=== PATIENT | male | born 1985 | race African-American/Black ===

== ENCOUNTER 2020-12-27 08:21 | Emergency (ER) | payer OTHER ==
--- NOTE | 2020-12-27 09:51 | ER ---
Nurse's Notes [facility] Name: Logan Leo Age: 35 yrs Sex: Male : 1985 Arrival Date: 12/27/2020 Time: 08:27 Bed 16 Private MD: Diagnosis: Pain in left shoulder;Gastrointestinal hemorrhage, unspecified-HEMORRHOIDS Presentation: 12/27 09:06 Chief complaint: Patient states: Left shoulder pain x 1 week and intermittent trace jl7 blood in stool and on toilet paper x 2 week. Coronavirus screen: Client denies travel out of the [place] in the last 14 days. At this time, the client does not indicate any symptoms associated with coronavirus-19. Ebola Screen: No symptoms or risks identified at this time. Initial Sepsis Screen: Does the patient meet any 2 criteria? No. Patient's initial sepsis screen is negative. Does the patient have a suspected source of infection? No. Patient's initial sepsis screen is negative. Risk Assessment: Do you want to hurt yourself or someone else? Patient reports no desire to harm self or others. Onset of symptoms was December 20, 2020. Care prior to arrival: None. 09:06 Method Of Arrival: Ambulatory jl7 09:06 Acuity: MATT 3 jl7 Triage Assessment: 09:08 General: Appears in no apparent distress. uncomfortable, Behavior is calm, cooperative, jl7 appropriate for age. Pain: Complains of pain in posterior aspect of left shoulder Pain currently is 7 out of 10 on a pain scale. Neuro: Level of Consciousness is awake, alert, obeys commands, Oriented to person, place, time, situation. Cardiovascular: Patient's skin is warm and dry. Respiratory: Airway is patent Respiratory effort is even, unlabored, Respiratory pattern is regular, symmetrical. GI: Abdomen is non-distended, Reports bloody stool. Derm: Skin is dry, Skin is normal, Skin temperature is warm. Historical: - Allergies: 09:08 No Known Allergies; jl7 - Home Meds: 09:08 None [Active]; jl7 - PMHx: 09:08 None; jl7 - PSHx: 09:08 None; jl7 - Immunization history:: Adult Immunizations unknown. - Social history:: Smoking status: Patient denies any tobacco usage or history of. Screenin:45 Abuse screen: Denies threats or abuse. Denies injuries from another. Nutritional jl7 screening: No deficits noted. Tuberculosis screening: No symptoms or risk factors identified. Fall Risk None identified. Assessment: 09:10 General: See triage assessment. jl7 Vital Signs: 09:06 BP 142 / 98; Pulse 87; Resp 17; Temp 98.5; Pulse Ox 100% ; Weight 77.11 kg; Height 5 jl7 ft. 7 in. (170.18 cm); Pain /10; 09:45 BP 145 / 99; Pulse 78; Resp 15; Pulse Ox 100% ; jl7 09:06 Body Mass Index 26.63 (77.11 kg, 170.18 cm) jl7 ED Course: 08:27 Patient arrived in ED. mr 08:49 Frederick oMrse MD is Attending Physician. [facility] 09:05 Gi Tello, RN is Primary Nurse. jl7 09:08 Triage completed. jl7 09:08 Arm band placed on right wrist. jl7 09:45 Patient has correct armband on for positive identification. Bed in low position. Call jl7 light in reach. Side rails up X 1. 09:50 Beth Cantor MD is Referral Physician. [facility] 10:20 No provider procedures requiring assistance completed. Patient did not have IV access jl7 during this emergency room visit. Administered Medications: No medications were administered Outcome: 09:51 Discharge ordered by . garrick 10:20 Discharged to home ambulatory. jl7 10:20 Condition: stable 10:20 Discharge instructions given to patient, Instructed on discharge instructions, follow up and referral plans. medication usage, Demonstrated understanding of instructions, follow-up care, medications, Prescriptions given X 2. 10:21 Patient left the ED. jl7 Signatures: Frederick Morse MD MD cha Rivera, Mary mr Gi Tello, RN RN jl7
--- NOTE | 2020-12-27 09:51 | EDPHYS ---
Physician Documentation [facility] Name: Logan Leo Age: 35 yrs Sex: Male : 1985 Arrival Date: 12/27/2020 Time: 08:27 Bed 16 Private MD: ED Physician Frederick Morse HPI: 12/27 09:45 This 35 yrs old Black Male presents to ER via Ambulatory with complaints of Shoulder garrick Pain, Bloody Stools. 09:45 The patient or guardian complains of pain, that is acute. left trapezius. Context: The garrick problem was sustained at an unknown site, resulted from an unknown reason, The patient reports no decreased range of motion. The patient reports no obvious deformity. Onset: The symptoms/episode began/occurred 1 day(s) ago. Modifying factors: the symptoms are alleviated by remaining still, The symptoms are aggravated by movement. Associated signs and symptoms: The patient has no apparent associated signs or symptoms. Severity of symptoms: At their worst the symptoms were mild, in the emergency department the symptoms are unchanged. The patient has not experienced similar symptoms in the past. Historical: - Allergies: 09:08 No Known Allergies; jl7 - Home Meds: 09:08 None [Active]; jl7 - PMHx: 09:08 None; jl7 - PSHx: 09:08 None; jl7 - Immunization history:: Adult Immunizations unknown. - Social history:: Smoking status: Patient denies any tobacco usage or history of. ROS: 09:46 Constitutional: Negative for fever, chills, and weight loss, Eyes: Negative for injury, garrick pain, redness, and discharge, ENT: Negative for injury, pain, and discharge, Neck: Negative for injury, pain, and swelling, Cardiovascular: Negative for chest pain, palpitations, and edema, Respiratory: Negative for shortness of breath, cough, wheezing, and pleuritic chest pain, Back: Negative for injury and pain, : Negative for injury, bleeding, discharge, and swelling, Skin: Negative for injury, rash, and discoloration, Neuro: Negative for headache, weakness, numbness, tingling, and seizure, Psych: Negative for depression, anxiety, suicide ideation, homicidal ideation, and hallucinations, Allergy/Immunology: Negative for hives, rash, and allergies, Endocrine: Negative for neck swelling, polydipsia, polyuria, polyphagia, and marked weight changes, Hematologic/Lymphatic: Negative for swollen nodes, abnormal bleeding, and unusual bruising. 09:46 Abdomen/GI: Positive for rectal bleeding. 09:46 MS/extremity: Positive for pain, of the anterior aspect of left shoulder and posterior aspect of left shoulder. Exam: 09:46 Constitutional: This is a well developed, well nourished patient who is awake, alert, garrick and in no acute distress. Head/Face: Normocephalic, atraumatic. Eyes: Pupils equal round and reactive to light, extra-ocular motions intact. Lids and lashes normal. Conjunctiva and sclera are non-icteric and not injected. Cornea within normal limits. Periorbital areas with no swelling, redness, or edema. ENT: Nares patent. No nasal discharge, no septal abnormalities noted. Tympanic membranes are normal and external auditory canals are clear. Oropharynx with no redness, swelling, or masses, exudates, or evidence of obstruction, uvula midline. Mucous membranes moist. Neck: Trachea midline, no thyromegaly or masses palpated, and no cervical lymphadenopathy. Supple, full range of motion without nuchal rigidity, or vertebral point tenderness. No Meningismus. Chest/axilla: Normal chest wall appearance and motion. Nontender with no deformity. No lesions are appreciated. Cardiovascular: Regular rate and rhythm with a normal S1 and S2. No gallops, murmurs, or rubs. Normal PMI, no JVD. No pulse deficits. Respiratory: Lungs have equal breath sounds bilaterally, clear to auscultation and percussion. No rales, rhonchi or wheezes noted. No increased work of breathing, no retractions or nasal flaring. Abdomen/GI: Soft, non-tender, with normal bowel sounds. No distension or tympany. No guarding or rebound. No evidence of tenderness throughout. Back: No spinal tenderness. No costovertebral tenderness. Full range of motion. Skin: Warm, dry with normal turgor. Normal color with no rashes, no lesions, and no evidence of cellulitis. Neuro: Awake and alert, GCS 15, oriented to person, place, time, and situation. Cranial nerves II-XII grossly intact. Motor strength 5/5 in all extremities. Sensory grossly intact. Cerebellar exam normal. Normal gait. Psych: Awake, alert, with orientation to person, place and time. Behavior, mood, and affect are within normal limits. 09:46 Musculoskeletal/extremity: Extremities: all appear grossly normal, with no appreciated pain with palpation, ROM: intact in all extremities, full active range of motion, full passive range of motion, Circulation is intact in all extremities. Sensation intact. Compartment Syndrome exam of affected extremity: is normal. Joints: All joints appear normal with full range of motion. Weight bearing: able to fully bear weight, DVT Exam: No signs of deep vein thrombosis. no pain, no swelling, no tenderness, negative Homans' sign noted on exam, no appreciated bluish discoloration, no erythema, no increased warmth. Vital Signs: 09:06 BP 142 / 98; Pulse 87; Resp 17; Temp 98.5; Pulse Ox 100% ; Weight 77.11 kg; Height 5 jl7 ft. 7 in. (170.18 cm); Pain 7/10; 09:45 BP 145 / 99; Pulse 78; Resp 15; Pulse Ox 100% ; jl7 09:06 Body Mass Index 26.63 (77.11 kg, 170.18 cm) 7 MDM: 08:49 Patient medically screened. garrick 09:48 Differential diagnosis: tendonitis, hemorrhoids. Data reviewed: vital signs, nurses garrick notes. Data interpreted: school lunch monitor: not applicable for this patient encounter. rate is 87 beats/min, rhythm is regular, Pulse oximetry: on is 100 %. Counseling: I had a detailed discussion with the patient and/or guardian regarding: the historical points, exam findings, and any diagnostic results supporting the discharge/admit diagnosis, radiology results, the need for outpatient follow up, for definitive care, a family practitioner, a wagon driver salesperson, a orthopedic surgeon. Administered Medications: No medications were administered Disposition: 12/27/20 09:51 Discharged to Home. Impression: Pain in left shoulder, Gastrointestinal hemorrhage, unspecified - HEMORRHOIDS. - Condition is Stable. - Discharge Instructions: Musculoskeletal Pain, Rectal Bleeding, Cryotherapy, [id number], Shoulder Pain, Igfs-[id number], Cryotherapy, Rectal Bleeding, [id number]. - Prescriptions for Ibuprofen 600 mg Oral Tablet - take 1 tablet by ORAL route every 8 hours As needed take with food; 21 tablet. Cyclobenzaprine 5 mg Oral Tablet - take 1 tablet by ORAL route 3 times per day As needed; 15 tablet. - Medication Reconciliation Form, Thank You Letter, Antibiotic Education, Prescription Opioid Use, Work release form form. - Follow up: Private Physician; When: 2 - 3 days; Reason: Recheck today's complaints, Continuance of care, Re-evaluation by your physician. Follow up: Beth Cantor MD; When: 2 - 3 days; Reason: Recheck today's complaints, Re-evaluation by your physician. - Problem is new. - Symptoms have improved. Signatures: Frederick Morse MD MD cha Leal, Jahala RN RN jl7 Corrections: (The following items were deleted from the chart) 10:21 09:51 12/27/2020 09:51 Discharged to Home. Impression: Pain in left shoulder; jl7 Gastrointestinal hemorrhage, unspecified - HEMORRHOIDS. Condition is Stable. Forms are Medication Reconciliation Form, Thank You Letter, Antibiotic Education, Prescription Opioid Use. Follow up: Private Physician; When: 2 - 3 days; Reason: Recheck today's complaints, Continuance of care, Re-evaluation by your physician. Follow up: Beth Cantor; When: 2 - 3 days; Reason: Recheck today's complaints, Re-evaluation by your physician. Problem is new. Symptoms have improved. garrick
[2020-12-27 10:26] VITALS: TEMP 98.5; O2SAT 100
[2020-12-27 10:27] VITALS: BP 145/99
== END 2020-12-27 10:21 | disposition home or self-care (01) ==
LOC: ER 08:21
DX: M25.512 Pain in left shoulder (principal); K64.9 Unspecified hemorrhoids
CPT/HCPCS: 99282

== ENCOUNTER 2023-04-15 13:23 | Emergency (ER) | payer OTHER, SELFPAY ==
[2023-04-15 14:05] LABS: Absolute Lymphocytes (CBC) 1.8 K/uL (0.7-4.9); Hematocrit 41.6 % (39.6-49.0); Lymphocytes % 21.3 % (15.3-44.8); MCV 93.2 fL (80-100); MPV 6.7 fL (7.6-11.3); Platelets 262 thou/uL (152-406); RBC Red Blood Cell Count 4.46 M/uL (4.33-5.43)
[2023-04-15] MEDS ORDERED: FAMOTIDINE 20 MG/2 ML VIAL IV ONE (14:07)
[2023-04-15] MEDS ORDERED: NA CHLORIDE 0.9% 1,000 ML ONE (14:07)
[2023-04-15 14:22] LABS: Bilirubin Total 0.6 mg/dL (0.2-1.0); Potassium 3.6 mEq/L (3.5-5.1); Protein, Total 7.6 g/dL (6.4-8.2)
--- NOTE | 2023-04-15 14:32 | ER ---
Nurse's Notes [facility] Name: Logan Leo Age: 38 yrs Sex: Male : 1985 Arrival Date: 04/15/2023 Time: 13:23 Bed 14 Private MD: Diagnosis: Rectal bleeding;Elevated blood-pressure reading, without diagnosis of hypertension Presentation: 04/15 13:45 Chief complaint: Patient states: rectal bleeding x2days. denies n/v diarrhea. kc6 Coronavirus screen: At this time, the client does not indicate any symptoms associated with coronavirus-19. Ebola Screen: No symptoms or risks identified at this time. Initial Sepsis Screen: Does the patient meet any 2 criteria? No. Patient's initial sepsis screen is negative. Does the patient have a suspected source of infection? No. Patient's initial sepsis screen is negative. Risk Assessment: Do you want to hurt yourself or someone else? Patient reports no desire to harm self or others. Onset of symptoms was April 15, 2023. 13:45 Method Of Arrival: Ambulatory [facility] 13:45 Acuity: MATT 3 kc6 Triage Assessment: 13:46 General: Appears in no apparent distress. comfortable, Behavior is calm, cooperative, kc6 appropriate for age. Pain: Complains of pain in rectum Pain currently is 4 out of 10 on a pain scale. EENT: No signs and/or symptoms were reported regarding the EENT system. Neuro: Level of Consciousness is awake, alert, obeys commands, Oriented to person, place, time, situation, Appropriate for age. Cardiovascular: Capillary refill < 3 seconds. Respiratory: Airway is patent Trachea midline Respiratory effort is even, unlabored, Respiratory pattern is regular, symmetrical. GI: Abdomen is flat, non-distended, Bowel sounds present X 4 quads. Reports bloody stool, Patient currently denies diarrhea, nausea, vomiting. : No signs and/or symptoms were reported regarding the genitourinary system. Derm: No signs and/or symptoms reported regarding the dermatologic system. Skin is intact, is healthy with good turgor, Skin is pink, warm \T\ dry. Musculoskeletal: No signs and/or symptoms reported regarding the musculoskeletal system. Circulation, motion, and sensation intact. Capillary refill < 3 seconds, Range of motion: intact in all extremities. Historical: - Allergies: 13:46 No Known Allergies; kc6 - PMHx: 13:46 None; kc6 - PSHx: 13:46 None; kc6 - Immunization history:: Client reports having NOT received the Covid vaccine. Flu vaccine is not up to date. - Social history:: Smoking status: Patient denies any tobacco usage or history of. Screenin:48 [facility] ED Fall Risk Assessment (Adult) History of falling in the last 3 months, kc6 including since admission No falls in past 3 months (0 pts) Confusion or Disorientation No (0 pts) Intoxicated or Sedated No (0 pts) Impaired Gait No (0 pts) Mobility Assist Device Used No (0 pt) Altered Elimination No (0 pt) Score/Fall Risk Level 0 - 2 = Low Risk. Abuse screen: Denies threats or abuse. Denies injuries from another. Nutritional screening: No deficits noted. Tuberculosis screening: No symptoms or risk factors identified. Assessment: 13:48 Reassessment: please see triage assessment. kc6 14:01 Reassessment: Patient appears in no apparent distress at this time. Patient and/or db family updated on plan of care and expected duration. Pain level reassessed. Patient is alert, oriented x 3, equal unlabored respirations, skin warm/dry/pink. RECTAL BLEEDING STARTED TODAY AFTER HAVING A BOWEL MOVEMENT. PT STATES IS A CHRONIC ISSUE X 1 YEAR. General: Appears in no apparent distress. comfortable, Behavior is calm, cooperative. Neuro: Level of Consciousness is awake, alert, obeys commands, Oriented to person, place, time, situation. Respiratory: Airway is patent Respiratory effort is even, unlabored, Respiratory pattern is regular, symmetrical. GI: Abdomen is flat, non-distended, Reports rectal bleeding. 14:48 Reassessment: Patient appears in no apparent distress at this time. No changes from kc6 previously documented assessment. Patient and/or family updated on plan of care and expected duration. Pain level reassessed. Patient is alert, oriented x 3, equal unlabored respirations, skin warm/dry/pink. 14:58 Reassessment: order faxed to pharmacy for Anusol. 6 Vital Signs: 13:45 Weight 79.38 kg (R); Height 5 ft. 7 in. (R); Pain 4/10; kc6 14:17 BP 158 / 105; Pulse 79; Resp 16 S; Pulse Ox 100% on R/A; kc6 14:57 BP 164 / 104; Pulse 84; Resp 19 S; Pulse Ox 100% on R/A; kc6 13:45 Body Mass Index 27.41 (79.38 kg, 170.18 cm) kc6 13:45 Pain Scale: Adult kc6 ED Course: 13:24 Patient arrived in ED. rg4 13:24 Gracie Hayden FNP-C is [facility]. snw 13:24 Aidan Beckman DO is Attending Physician. snw 13:42 Holli Moreno RN is Primary Nurse. kc6 13:46 Triage completed. kc6 13:46 Arm band placed on. kc6 13:48 Patient has correct armband on for positive identification. Placed in gown. Bed in low kc6 position. Call light in reach. Side rails up X 1. Adult w/ patient. Client placed on continuous cardiac and pulse oximetry monitoring. NIBP monitoring applied. 13:56 CBC with Diff Sent. sm8 13:56 CMP Sent. sm8 13:56 Inserted saline lock: 20 gauge in right antecubital area, using aseptic technique. sm8 Blood collected. 15:50 No provider procedures requiring assistance completed. IV discontinued, intact, kc6 bleeding controlled, No redness/swelling at site. Pressure dressing applied. Administered Medications: 14:00 Drug: Famotidine IVP 20 mg IVP once; dilute with 10 mL 0.9% NaCl; give over 2 minutes db Route: IVP; Site: right antecubital; 14:57 Follow up: Response: No adverse reaction kc6 14:01 Drug: NS 0.9% IV 1000 ml IV at 1 bolus Per protocol; 1000 mL bolus Route: IV; Rate: 1 db bolus; Site: right antecubital; 14:57 Follow up: Response: No adverse reaction; IV Status: Completed infusion; IV Intake: kc6 1000ml 14:57 Drug: amLODIPine PO 5 mg PO once Route: PO; kc6 15:50 Follow up: Response: No adverse reaction kc6 15:31 Drug: Anusol-HC [place] Suppository 25 mg 25 mg AZ once Route: AZ; kc6 15:50 Follow up: Response: No adverse reaction kc6 Medication: 15:50 VIS not applicable for this client. kc6 Intake: 14:57 IV: 1000ml; Total: 1000ml. kc6 Outcome: 14:32 Discharge ordered by . snw 15:50 Discharged to home ambulatory, with significant other, kc6 15:50 Condition: stable 15:50 Discharge instructions given to patient, Instructed on discharge instructions, follow up and referral plans. medication usage, Demonstrated understanding of instructions, follow-up care, medications, Prescriptions given X 1, 15:51 Patient left the ED. kc6 Signatures: Gracie Hayden, TRAINING DESIGNER-C TRAINING DESIGNER-CsnShweta Barrios rg4 Holli Moreno, RN RN kc6 Karol Frazier, RN RN db Terese Almanza sm8
--- NOTE | 2023-04-15 14:32 | EDPHYS ---
Physician Documentation [facility] Name: Logan Leo Age: 38 yrs Sex: Male : 1985 Arrival Date: 04/15/2023 Time: 13:23 Bed 14 Private MD: ED Physician Aidan Beckman HPI: 04/15 14:02 This 38 yrs old Black Male presents to ER via Ambulatory with complaints of Rectal snw Bleeding. 14:02 The patient presents to the emergency department with bleeding from the rectum/anus, snw that is mild. Onset: The symptoms/episode began/occurred 3 day(s) ago. Context: the patient has no known special context relating to the rectal area complaint(s). Modifying factors: The symptoms are alleviated by nothing, The symptoms are aggravated by pt states he had a lot of cheese containing foods, + diarrhea with bright red blood on some stool. no melena, mild hematochezia. Associate signs and symptoms: Pertinent positives: mild generalized abd pain. The patient has not experienced similar symptoms in the past. The patient has not recently seen a physician. pt with colonoscopy 2.5yrs ago, per Dr. Robison, no findings.. Historical: - Allergies: 13:46 No Known Allergies; kc6 - PMHx: 13:46 None; kc6 - PSHx: 13:46 None; kc6 - Immunization history:: Client reports having NOT received the Covid vaccine. Flu vaccine is not up to date. - Social history:: Smoking status: Patient denies any tobacco usage or history of. ROS: 14:02 Constitutional: Negative for fever, chills, and weight loss, Eyes: Negative for injury, snw pain, redness, and discharge, ENT: Negative for injury, pain, and discharge, Neck: Negative for injury, pain, and swelling, Cardiovascular: Negative for chest pain, palpitations, and edema, Respiratory: Negative for shortness of breath, cough, wheezing, and pleuritic chest pain, Back: Negative for injury and pain, : Negative for injury, bleeding, discharge, and swelling, MS/Extremity: Negative for injury and deformity, Skin: Negative for injury, rash, and discoloration, Neuro: Negative for headache, weakness, numbness, tingling, and seizure, Psych: Negative for depression, anxiety, suicide ideation, homicidal ideation, and hallucinations, 14:02 Abdomen/GI: Positive for abdominal pain, rectal bleeding, Exam: 14:01 Constitutional: This is a well developed, well nourished patient who is awake, alert, snw and in no acute distress. Head/Face: Normocephalic, atraumatic. Eyes: Pupils equal round and reactive to light, extra-ocular motions intact. Lids and lashes normal. Conjunctiva and sclera are non-icteric and not injected. Cornea within normal limits. Periorbital areas with no swelling, redness, or edema. ENT: Nares patent. No nasal discharge, no septal abnormalities noted. Tympanic membranes are normal and external auditory canals are clear. Oropharynx with no redness, swelling, or masses, exudates, or evidence of obstruction, uvula midline. Mucous membranes moist. Neck: Trachea midline, no thyromegaly or masses palpated, and no cervical lymphadenopathy. Supple, full range of motion without nuchal rigidity, or vertebral point tenderness. No Meningismus. Chest/axilla: Normal chest wall appearance and motion. Nontender with no deformity. No lesions are appreciated. Cardiovascular: Regular rate and rhythm with a normal S1 and S2. No gallops, murmurs, or rubs. Normal PMI, no JVD. No pulse deficits. Respiratory: Lungs have equal breath sounds bilaterally, clear to auscultation and percussion. No rales, rhonchi or wheezes noted. No increased work of breathing, no retractions or nasal flaring. Abdomen/GI: Soft, non-tender, with normal bowel sounds. No distension or tympany. No guarding or rebound. No evidence of tenderness throughout. Back: No spinal tenderness. No costovertebral tenderness. Full range of motion. Skin: Warm, dry with normal turgor. Normal color with no rashes, no lesions, and no evidence of cellulitis. MS/ Extremity: Pulses equal, no cyanosis. Neurovascular intact. Full, normal range of motion. Neuro: Awake and alert, GCS 15, oriented to person, place, time, and situation. Cranial nerves II-XII grossly intact. Motor strength 5/5 in all extremities. Sensory grossly intact. Cerebellar exam normal. Normal gait. Psych: Awake, alert, with orientation to person, place and time. Behavior, mood, and affect are within normal limits. Vital Signs: 13:45 Weight 79.38 kg (R); Height 5 ft. 7 in. (R); Pain 4/10; kc6 14:17 BP 158 / 105; Pulse 79; Resp 16 S; Pulse Ox 100% on R/A; kc6 14:57 BP 164 / 104; Pulse 84; Resp 19 S; Pulse Ox 100% on R/A; kc6 13:45 Body Mass Index 27.41 (79.38 kg, 170.18 cm) kc6 13:45 Pain Scale: Adult kc6 MDM: 13:42 Patient medically screened. snw 14:35 Differential diagnosis: hemorrhoids, fissure, abscess. Data reviewed: vital signs, snw nurses notes, lab test result(s). I considered the following discharge prescriptions or medication management in the emergency department Medications were administered in the Emergency Department. See MAR. Counseling: I had a detailed discussion with the patient and/or guardian regarding the historical points, exam findings, and any diagnostic results supporting the discharge/admit diagnosis, lab results, the need for outpatient follow up, to return to the emergency department if symptoms worsen or persist or if there are any questions or concerns that arise at home. Special discussion: Based on the patient's Hx, exam, and Dx evaluation, there is no indication for emergent surgery or inpatient Tx. It is understood by the patient/guardian that if the Sx's persist or worsen they need to return immediately for re-evaluation. Based on the history and exam findings, there is no indication for further emergent testing or inpatient evaluation. I discussed with the patient/guardian the need to see the indoor plant technician for further evaluation of the symptoms. I discussed with the patient/guardian the need to see the primary care provider for further evaluation of the symptoms. 04/15 13:42 Order name: CBC with Diff; Complete Time: 14:14 snw 04/15 13:42 Order name: CMP; Complete Time: 14:30 snw 04/15 13:42 Order name: IV Saline Lock; Complete Time: 13:56 snw 04/15 13:42 Order name: Labs collected and sent; Complete Time: 13:56 snw Administered Medications: 14:00 Drug: Famotidine IVP 20 mg IVP once; dilute with 10 mL 0.9% NaCl; give over 2 minutes db Route: IVP; Site: right antecubital; 14:57 Follow up: Response: No adverse reaction kc6 14:01 Drug: NS 0.9% IV 1000 ml IV at 1 bolus Per protocol; 1000 mL bolus Route: IV; Rate: 1 db bolus; Site: right antecubital; 14:57 Follow up: Response: No adverse reaction; IV Status: Completed infusion; IV Intake: kc6 1000ml 14:57 Drug: amLODIPine PO 5 mg PO once Route: PO; kc6 15:50 Follow up: Response: No adverse reaction kc6 15:31 Drug: Anusol-HC LA Suppository 25 mg 25 mg LA once Route: LA; kc6 15:50 Follow up: Response: No adverse reaction kc6 Disposition: 16:14 I was immediately available on-site in the Emergency Department for consultation in the ms3 care of the patient. Disposition Summary: 04/15/23 14:32 Discharge Ordered Notes: Location: Home snw Condition: Stable snw Diagnosis - Rectal bleeding snw - Elevated blood-pressure reading, without diagnosis of hypertension snw Followup: snw - With: Emergency Department - When: As needed - Reason: Worsening of condition Followup: snw - With: Private Physician - When: 2 - 3 days - Reason: Recheck today's complaints, Continuance of care, Re-evaluation by your physician Discharge Instructions: - Discharge Summary Sheet snw - Abdominal Pain, Adult snw - Hypertension, Adult snw - Rectal Bleeding snw - How to Take Your Blood Pressure, Fvls-be-Dgbr snw - DASH Eating Plan snw - Form - Blood Pressure Record Sheet snw - [place] Diet snw Forms: - Work release form snw - Medication Reconciliation Form snw - Thank You Letter snw - Antibiotic Education snw - Prescription Opioid Use snw - Patient Portal Instructions snw - Leadership Thank You Letter snw Prescriptions: - Anusol-HC 25 mg Rectal Suppository - insert 1 suppository by RECTAL route every 12 hours As needed; 20 suppository; snw Refills: 0, Product Selection Permitted Signatures: Dispatcher [employer] EDGracie Person FNP-C FNP-Aidan Mccann DO DO ms3 Holli Moreno RN RN kc6 Karol Frazier RN RN db Corrections: (The following items were deleted from the chart) 14:04 14: Abdomen/GI: Positive for abdominal pain, rectal bleeding, snw snw 14: Modifying factors: The symptoms are alleviated by nothing, The symptoms are snw aggravated by nothing. snw : 14: Modifying factors: The symptoms are alleviated by nothing, The symptoms are snw aggravated by pt states he had a lot of cheese containing foods, + diarrhea with bright red blood on some stool. no melena, no hematochezia snw
[2023-04-15] MEDS ORDERED: HYDROCORTISONE ACETATE 25MG SUPP PR ONE (15:00)
[2023-04-15] MEDS ORDERED: AMLODIPINE 5 MG TAB ONE (15:04)
[2023-04-15 16:19] VITALS: O2SAT 100
[2023-04-15 16:22] VITALS: BP 164/104
== END 2023-04-15 15:51 | disposition home or self-care (01) ==
LOC: ER 13:23
DX: K62.5 Hemorrhage of anus and rectum (principal); R03.0 Elevated blood-pressure reading, without diagnosis of hypertension; Z28.310 Unvaccinated for COVID-19
CPT/HCPCS: 36415; 80053; 85025; J7030